=== PATIENT | female | born 1955 | race American Indian/Alaskan Native ===

== ENCOUNTER 2021-09-28 06:03 | Day surgery (SDC) | payer OTHER ==
[2021-09-20 10:17] VITALS: BMI 25.7
[~2021-09-28 06:03] MED LIST: CEFAZOLIN 2 GM in DEXTROSE 5%-WATER - 50 ML IVPB ONE; TRANEXAMIC ACID 1000 MG/10 ML VIAL IVPUSH ONE
[2021-09-28] MEDS ORDERED: BUPIVACAINE HCL/PF 0.5% (5 MG/ML) 30 ML VIAL IJ ONE (06:53)
[2021-09-28] MEDS ORDERED: BUPIVACAINE LIPOSOME/PF (EXPAREL) 266 MG/20 ML VIAL ONE (06:53)
[2021-09-28] MEDS ORDERED: BUPIVACAINE HCL/PF 0.5% (5MG/ML) 10 ML VIAL ONE (06:54)
[2021-09-28] MEDS ORDERED: MIDAZOLAM HCL 2 MG/2 ML SINGLE DOSE VIAL ONE (06:54)
[2021-09-28] MEDS ORDERED: SODIUM CHLORIDE 0.9% P/F 10 ML VIAL IJ ONE (06:54)
[2021-09-28] MEDS ORDERED: DEXMEDETOMIDINE HCL 200 MCG/2 ML IVPB ONE (06:54)
[2021-09-28] MEDS ORDERED: PROPOFOL 20 ML ONE ×2 (08:14)
[2021-09-28] MEDS ORDERED: TRANEXAMIC ACID 1000 MG/10 ML VIAL ONE (08:15)
[2021-09-28] MEDS ORDERED: ONDANSETRON 4 MG/2 ML VIAL ONE (08:15)
[2021-09-28] MEDS ORDERED: ceFAZolin SODIUM 1 GM VIAL ONE ×2 (08:15→18:16)
[2021-09-28] MEDS ORDERED: SUCCINYLCHOLINE CHLORIDE 200 MG/10 ML SYRINGE ONE (08:15)
[2021-09-28] MEDS ORDERED: DEXAMETHASONE SOD PHOSPHATE 4 MG/1 ML VIAL ONE (08:15)
[2021-09-28] MEDS ORDERED: MAGNESIUM HYDROX 2400MG/30ML ORAL SUSPENSION 30 ML CUP PO PRN (10:24)
[2021-09-28] MEDS ORDERED: ONDANSETRON 4 MG/2 ML VIAL IVPUSH PRN ×2 (10:24→10:27)
[2021-09-28] MEDS ORDERED: MAG HYDROX/AL HYDROX/SIMETH 30 ML UNIT-DOSE CUP PO PRN (10:24)
[2021-09-28] MEDS ORDERED: oxyCODONE HCL 5 MG TABLET PO PRN (10:27)
[2021-09-28] MEDS ORDERED: LACTATED RINGERS SOLUTION 1,000 ML IV SCH (10:30)
[2021-09-28] MEDS ORDERED: ACETAMINOPHEN 500 MG TABLET (FP) ONE (11:36)
[2021-09-28] MEDS: oxyCODONE HCL 5 MG TABLET PO PRN ×2 (16:30→21:20)
[2021-09-28] MEDS ORDERED: DEXTROSE 5%-WATER - 50 ML IVPB ONE (18:17)
[2021-09-28] MEDS: CEFAZOLIN 2 GM in DEXTROSE 5%-WATER - 50 ML IVPB SCH (18:25)
[2021-09-28] MEDS: ACETAMINOPHEN 500 MG TABLET (FP) PO SCH ×3 (18:26→19:31)
[2021-09-28] MEDS: ASPIRIN 81 MG CHEWABLE TABLETS PO SCH (21:19)
[2021-09-28] MEDS: CELECOXIB 200 MG CAPSULE PO SCH (21:19)
[2021-09-28] MEDS: PHENYTOIN NA EXTENDED 100 MG CAPSULE (FP) PO SCH (21:20)
[2021-09-28] MEDS: SENNOSIDES/DOCUSATE COMBO (SENNA PLUS) TABLET (UD) PO SCH (21:20)
[2021-09-28] MEDS ORDERED: ASPIRIN 81 MG CHEWABLE TABLETS PO SCH (22:00)
[2021-09-29] MEDS: oxyCODONE HCL 5 MG TABLET PO PRN ×4 (01:25→15:28)
[2021-09-29] MEDS: ACETAMINOPHEN 500 MG TABLET (FP) PO SCH ×5 (01:25→23:28)
[2021-09-29] MEDS ORDERED: ceFAZolin SODIUM 1 GM VIAL ONE ×2 (02:21→10:19)
[2021-09-29] MEDS ORDERED: DEXTROSE 5%-WATER - 50 ML IVPB ONE ×2 (02:22→10:19)
[2021-09-29] MEDS: CEFAZOLIN 2 GM in DEXTROSE 5%-WATER - 50 ML IVPB SCH ×2 (03:04→10:23)
[2021-09-29 08:18] LABS: HEMATOCRIT 36.6 % (32.4-45.2); HEMOGLOBIN 12.5 G/dL (10.7-15.3); MCH 30.5 pg (25.7-33.7); MCHC 34.2 g/dl (32.0-36.0); MEAN CELL VOLUME 89.1 fl (80-96); PLATELET COUNT 189.6 10^3/uL (134-434); RBC 4.11 10^6/uL (3.60-5.2); RDW 14.1 % (11.6-15.6); WHITE BLOOD COUNT 10.8 10^3/uL (4.0-10.8)
[2021-09-29 08:28] LABS: CALCIUM 8.2 mg/dl (8.5-10); CREATININE 0.6 mg/dl (0.55-1.3)
[2021-09-29] MEDS: PANTOPRAZOLE 40 MG TABLET PO SCH (10:25)
[2021-09-29] MEDS: SENNOSIDES/DOCUSATE COMBO (SENNA PLUS) TABLET (UD) PO SCH ×2 (10:25→21:23)
[2021-09-29] MEDS: ASPIRIN 81 MG CHEWABLE TABLETS PO SCH ×2 (10:25→21:23)
[2021-09-29] MEDS: MULTIVITAMINS (DAILY MVI) TABLET (FP) PO SCH (10:25)
[2021-09-29] MEDS ORDERED: ACETAMINOPHEN 500 MG TABLET (FP) PO SCH (15:00)
[2021-09-29] MEDS: CELECOXIB 200 MG CAPSULE PO SCH (21:23)
[2021-09-29] MEDS: CEPHALEXIN MONOHYDRATE 250 MG CAPSULE (FP) PO SCH (21:24)
[2021-09-29] MEDS: PHENYTOIN NA EXTENDED 100 MG CAPSULE (FP) PO SCH (21:24)
[2021-09-30] MEDS: CEPHALEXIN MONOHYDRATE 250 MG CAPSULE (FP) PO SCH ×2 (03:27→10:45)
[2021-09-30] MEDS: ACETAMINOPHEN 500 MG TABLET (FP) PO SCH ×2 (06:29→14:20)
[2021-09-30] MEDS: SENNOSIDES/DOCUSATE COMBO (SENNA PLUS) TABLET (UD) PO SCH (10:43)
[2021-09-30] MEDS: oxyCODONE HCL 5 MG TABLET PO PRN ×2 (10:44→14:20)
[2021-09-30] MEDS: ASPIRIN 81 MG CHEWABLE TABLETS PO SCH (10:44)
[2021-09-30] MEDS: PANTOPRAZOLE 40 MG TABLET PO SCH (10:45)
[2021-09-30] MEDS: MULTIVITAMINS (DAILY MVI) TABLET (FP) PO SCH (10:45)
[2021-09-30 14:08] VITALS: BP 139/59; PULSE 90; TEMP 98.9
== END 2021-09-30 15:57 ==
LOC: FASUSAT 06:03 → FM/S 12:52 → FASUSAT 09-30 15:57
PROVIDERS: ATTEND Orthopaedic Surgery
PROC: 0SRD0J9 Replacement of Left Knee Joint with Synthetic Substitute, Cemented, Open Approach (ICD-10-PCS; principal; 2021-09-28 08:34)
DX: M17.12 Unilateral primary osteoarthritis, left knee (principal)
CPT/HCPCS: 27447; C1776; 36415; 73560-TC-LT-FY; 80048; 85027; 88304-TC; 88311-TC; 94760; 97010-GP; 97116-GP; 97162-GP; C9803-CS; U0003; U0005